=== PATIENT | female | born 1995 | race Two or more races ===

== ENCOUNTER 2025-07-15 12:13 | Emergency (ER) | payer OTHER ==
[2025-07-15 14:24] LABS: BASO # 0.1 10^3/uL (0.0-0.2); BASO % 0.9 % (0.0-1.0); EOS # 0.1 10^3/uL (0.0-0.5); EOS % 1.8 % (0.0-3.0); LYMPH # 2.2 10^3/uL (1.5-5.0); LYMPH % 39.0 % (24.0-44.0); MONO # 0.3 10^3/uL (0.0-0.8); MONO % 4.4 % (2.0-8.0); NEUTROPHILS # 3.1 10^3/uL (1.5-8.5); NEUTROPHILS % 53.7 % (36.0-66.0); PLATELET COUNT, AUTOMATED 230 10^3/uL (150-450)
[2025-07-15 14:43] LABS: CALCIUM LEVEL 9.1 MG/DL (8.5-10.1); CARBON DIOXIDE LEVEL 25 MMOL/L (20-31); CHLORIDE LEVEL 105 MMOL/L (98-107); CREATININE FOR GFR 0.58 MG/DL (0.55-1.30); GLOMERULAR FILTRATION RATE > 90.0 (>60); POTASSIUM SERUM 4.2 MMOL/L (3.5-5.1); SODIUM LEVEL 138 MMOL/L (136-145)
[2025-07-15 15:00] LABS: HCG, SERUM QUALITATIVE NEGATIVE (NEGATIVE)
[2025-07-15] MEDS ORDERED: ISOVUE-370 76% 100 ML VIAL As Ordered ONE (15:17)
[2025-07-15 18:23] VITALS: BP 98/54; TEMP 98.4; O2SAT 98
== END 2025-07-15 18:27 | disposition home or self-care (01) ==
LOC: M ED 12:13
DX: Z04.1 Encounter for examination and observation following transport accident (principal)
CPT/HCPCS: 70450; 71260; 72125; 72128; 72131; 73060; 73090; 73552; 73590; 74177; 80047; 80048; 84703; 85025; 99282; Q9967